=== PATIENT | male | born 1990 ===

== ENCOUNTER 2023-05-12 19:52 | Emergency (ER) | payer SELFPAY ==
[~2023-05-12] VITALS: Ht 172.7 cm; Wt 91.0 kg
[2023-05-12 20:24] VITALS: TEMP 98.6; O2SAT 100
[2023-05-12] MEDS ORDERED: SODIUM CHLORIDE 0.9% 1,000 ML IV ONE (21:30)
[2023-05-12] MEDS ORDERED: LEVETIRACETAM 500MG PREMIX 100 ML IV ONE (21:30)
[2023-05-12 21:52] VITALS: BP 135/79; PULSE 53; RESP 18
[2023-05-12 21:52] LABS: HEMATOCRIT. 45.8 % (42.0-52.0); HEMOGLOBIN. 15.3 g/dL (14.0-18.0); MEAN CORPUSCULAR HGB CONC 33.4 g/dL (31.0-37.0); MEAN CORPUSCULAR VOLUME 95.7 fL (80.0-94.0); MEAN PLATELET VOLUME 8.4 fl (7.4-10.4); PLATELET 235 x1000/uL (130-400); RED BLOOD CELL COUNT 4.78 mill/uL (4.7-6.1); RED CELL DISTRIBUTION WIDTH 13.8 % (11.6-14.6); WHITE BLOOD COUNT 4.5 x1000/uL (4.5-11.0)
[2023-05-12 21:53] LABS: DIFFERENTIAL COMMENT 1
[2023-05-12 22:03] LABS: ALANINE AMINOTRANSFERASE 40 IU/L (10-49); ALBUMIN 4.4 g/dL (3.2-4.8); ASPARTATE AMINOTRANSFERASE 37 IU/L (<34); BILIRUBIN TOTAL 0.4 mg/dL (0.1-1.0); CARBON DIOXIDE 24 mEq/L (21-32); CHLORIDE 104 mEq/L (98-107); CREATININE 1.4 mg/dL (0.6-1.3); GLUCOSE 92 mg/dL (70-105); POTASSIUM 3.6 mEq/L (3.5-5.1); SODIUM 138 mEq/L (136-145); UREA NITROGEN BLOOD 10 mg/dL (9-23)
[2023-05-12 22:06] LABS: ATYPICAL LYMPHOCYTES 4; GIANT PLATELETS 3+; PLATELET ESTIMATE NORMAL
== END 2023-05-12 23:59 | disposition left against medical advice (07) ==
LOC: ER 19:52
DX: G44.209 Tension-type headache, unspecified, not intractable (principal); R56.9 Unspecified convulsions
CPT/HCPCS: 80053; 85025; 36415; 70496; 70498; 96365; 99285; J1953; J7030; Z7610 ×3